=== PATIENT | male | born 1950 ===

== ENCOUNTER 2018-04-16 09:50 | Day surgery (SDC) | payer OTHER ==
[~2018-04-16 09:50] MED LIST: BETIMOL5 M1 OP; JANUMET 50-1,01 EACH PO; LOSARTAN POTASS50 MG PO; TRAVATAN Z5 ML OP; TRUSOPT10 ML OP
== END 2018-04-16 16:50 | disposition home or self-care (01) ==
LOC: CIR.AMB 09:50
DX: S42.251A Displaced fracture of greater tuberosity of right humerus, initial encounter for closed fracture (principal); M75.121 Complete rotator cuff tear or rupture of right shoulder, not specified as traumatic